=== PATIENT | female | born 1985 | race Caucasian/White ===

== ENCOUNTER → 2016-09-08 11:26 | Observation (INO) ==
[2016-09-08 05:04] LABS: Bilirubin,Urine Negative (Negative); Blood,Urine Negative (Negative); Clarity,Urine Cloudy (Clear); Color,Urine Yellow (Yellow); Glucose,Urine (UA) Normal (Normal); Ketones,Urine Trace mg/dL (Negative); Leukocyte Esterase,Urine Large (Negative); Nitrite,Urine Negative (Negative); Protein,Urine Negative (Neg-Trace); Specific Gravity,Urine 1.012 (1.010-1.025); Urobilinogen,Urine Normal (Normal)
[2016-09-08 05:07] LABS: Bacteria,Urine Moderate per hpf (None-Few); Hyaline Casts,Urine None Seen per lpf (None-Few); RBC,Urine 0-3 per hpf (0-3); Squamous Epithelial Cell,Urine Many per lpf (None-Few)
--- NOTE | 2016-09-08 06:43 | OB/GYN Progress Note ---
Date of Encounter: 09/08/16 Time of Encounter: 06:30 - Assessment and Plan (1) 34 weeks gestation of Current Visit: Yes Status: Acute (2) Uterine contractions Current Visit: Yes Status: Acute UA done, + ketone, possible contaminated. Will send for culture. Pt states did not drink much yesterday. Will give 1L bolus. Follow up cervical exam with unchanged cervix. If contractions continue to decrease will discharge to home Shift report gien to oncoming CNM Subjective - Subjective Interval history: 34+0 complaining of contractions starting last evening becoming more consistent every 3-10 minutes prior to arrival now every 1-4 minutes since arrival. Patient states contractions are strong and becoming increasingly more painful. Patient reports good movement, denies vaginal bleeding or leaking of fluid, blurred vision, visual changes, or epigastric pain. Patient is having increased edema, normotensive, negative protein in urine, patient states she has a history of edema and prior pregnancies. 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 Antepartum ROS: new complaints, movement normal, contractions, no loss of fluid, no vaginal bleeding Objective - Vital Signs Vital Signs: Intake and Output 09/07/16 09/07/16 09/08/16 15:59 23:59 07:59 Other: Weight 116.5 kg Patient Weight 09/08/16 23:59 Weight 116.5 kg - Exam FHR: category 1 Auscultation: bilateral: normal Abdomen: Present: normal appearance, soft, gravid Uterus: Present: normal Cervical dilation: 1/thick/high per RN - Labs Labs: Abnormal lab results Urine Clarity Cloudy (Clear) A 09/08/16 04:55 Urine Ketones Trace mg/dL (Negative) H 09/08/16 04:55 Ur Leukocyte Esterase Large (Negative) H 09/08/16 04:55 Urine Microscopic WBC 5-15 per hpf (0-3) H 09/08/16 04:55 Ur Squamous Epith Cells Many per lpf (None-Few) H 09/08/16 04:55 Urine Bacteria Moderate per hpf (None-Few) H 09/08/16 04:55 Ur Culture Indicated? YES (NO) A 09/08/16 04:55
--- NOTE | 2016-09-08 11:08 | Discharge Summary ---
Date of Encounter: 09/08/16 Time of Encounter: 11:08 - Discharge Diagnosis (1) 34 weeks gestation of Priority: Secondary Status: Acute Comments: No cervical change (2) Uterine contractions Priority: Primary Status: Acute Comments: Have ceased since SQ terbutaline Follow up in office with routine care labor precautions given POC per consult with Dr Plascencia - Discharge Medications Home Medications: Aspirin [Lo-Dose Aspirin EC] 1 tab PO DAILY 09/08/16 [History] FLUoxetine HCl [Prozac] 20 mg PO DAILY 09/08/16 [History] Loratadine [Claritin] 1 tab PO DAILY 09/08/16 [History] [id number]/Iron Fumarate/FA/Dss [ 19 Tablet] 1 tab PO DAILY 09/08/16 [ History] Allergies/Adverse Reactions: Allergies metoclopramide [From Reglan] Allergy (Severe, Verified 09/08/16 04:35) Anaphylaxis morphine Allergy (Verified 09/08/16 04:35) Rash Data Procedures and tests throughout hospitalization: Laboratory Tests 09/08/16 04:55 Urine Color Yellow Urine Clarity Cloudy A Urine pH 7.0 Ur Specific Calvin 1.012 Urine Protein Negative Urine Glucose (UA) Normal Urine Ketones Trace H Urine Blood Negative Urine Nitrite Negative Urine Bilirubin Negative Urine Urobilinogen Normal Ur Leukocyte Esterase Large H Urine Microscopic RBC 0-3 Urine Microscopic WBC 5-15 H Ur Squamous Epith Cells Many H Urine Bacteria Moderate H Hyaline Casts None Seen Ur Culture Indicated? YES A Labs on day of discharge: Labs from last 24 hours 09/08/16 04:55 Urine Color Yellow Urine Clarity Cloudy A Urine pH 7.0 Ur Specific Calvin 1.012 Urine Protein Negative Urine Glucose (UA) Normal Urine Ketones Trace H Urine Blood Negative Urine Nitrite Negative Urine Bilirubin Negative Urine Urobilinogen Normal Ur Leukocyte Esterase Large H Urine Microscopic RBC 0-3 Urine Microscopic WBC 5-15 H Ur Squamous Epith Cells Many H Urine Bacteria Moderate H Hyaline Casts None Seen Ur Culture Indicated? YES A Date of admission: 09/08/16 04:14 Primary care physician: Jemma Rees CNP Discharging clinician: Veena Evans Anticipated date of discharge: 09/08/16 - Patient Status Disposition: Home, Self-Care Condition: Good Functional capacity at discharge: independent ambulation Overall status at discharge: patient is back to baseline - Discharge Instructions Follow Up With: Jemma Rees CNP [Primary Care Provider] - Bhaskar Hill MD [Partnered Physician] - - Diet and Activity Activity: increase activity as tolerated Diet: regular diet Hospital Course RN QUALITY Time Attestation: Total time spent providing and/or coordinating discharge services: Time Spent: Less than 30 minutes Exam - Constitutional General appearance IM: cooperative, A&O X 3, pleasant - Respiratory Respiratory exam: Present: CTAB - Cardiovascular Cardiovascular exam IM: Present: RRR, +S1, +S2 - GI/Abdominal GI/Abdominal exam IM: normal bowel sounds, soft - Rectal Rectal exam: deferred - Additional comments: Gravid, appropriate for gestational age FHTs 120's with moderate variability, 15x15 accels category I TOCO Contractions irregular since receiving terbutaline SQ - Extremities Exam Extremities exam IM: Present: normal capillary refill, normal inspection, radial pulses palpable and symetrical - Neurological Exam Neurological exam: alert, oriented X3
[~2016-09-08 11:26] MED LIST: Ringers Solution, Lactated 1,000 ML IVC SCH; Ringers Solution, Lactated 1,000 ML ONE; Terbutaline 1 MG/ML VIAL SQ ONE
== END | disposition home or self-care (01) ==
LOC: 1NENULAB
PROVIDERS: ADMIT Advanced Practice Midwife; ATTEND Advanced Practice Midwife

== ENCOUNTER 2016-10-05 20:41 | Observation (INO) ==
[2016-10-05 21:16] VITALS: BP 130/79
--- NOTE | 2016-10-05 21:36 | OB/GYN Progress Note ---
Date of Encounter: 10/05/16 Time of Encounter: 21:34 - Assessment and Plan (1) 37 weeks gestation of Current Visit: Yes Status: Acute (2) Uterine contractions Current Visit: No Status: Acute Pt reports contractions have decreased in frequency and intensity since arrival to triage. SVE /-1. She does have a history of fast labors. Will allow pt to ambulate and repeat exam in 1-2 hours. Anticipate discharge home if no cervical change noted. Subjective - Subjective Principal diagnosis: contractions, back pain Interval history: 31 year-old presenting at 37w6d with c/o contractions every 4-6 minutes and sharp lower back pain since 1600 today. She denies any urinary sx, leaking fluid, vaginal bleeding or other complaints. Good FM. Antepartum ROS: movement normal, contractions, no loss of fluid, no vaginal bleeding Objective - Vital Signs Vital Signs: Vital Signs Temp Pulse Resp BP 10/05/16 21:07 97.4 F L 90 16 130/79 Intake and Output 10/05/16 10/05/16 10/05/16 07:59 15:59 23:59 Other: Weight 119 kg Patient Weight 10/05/16 23:59 Weight 119 kg - Exam FHR: category 1 FHR comments: NST reactive Abdomen: Present: soft, gravid. Absent: tenderness Uterus: Absent: tenderness Cervical dilation: 3 Cervix effacement: 70 station: -1
--- NOTE | 2016-10-05 23:38 | Anesthesia Evaluation PreOp ---
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 Significant HX Other Medical History: Denies Any Significant HX Anesthesia History: No Prior Anesthetic Complications, Past Anesthesia (knee arthoscopy, vaginal del - 2 epidural one worked,) : Yes (38 wk) Alcohol Use: none Drug use: none Medications and Allergies Aspirin [Lo-Dose Aspirin EC] 1 tab PO DAILY 09/08/16 [History] FLUoxetine HCl [Prozac] 20 mg PO DAILY 09/08/16 [History] Loratadine [Claritin] 1 tab PO DAILY 09/08/16 [History] [id number]/Iron Fumarate/FA/Dss [ 19 Tablet] 1 tab PO DAILY 09/08/16 [ History] Allergies metoclopramide [From Reglan] Allergy (Severe, Verified 09/08/16 04:35) Anaphylaxis morphine Allergy (Verified 09/08/16 04:35) Rash Anesthesia Exam - HEENT Pupil (Motor): Pupils equal Mallampati: II Teeth: Normal Oral Opening: Greater than 3 - ADMINISTRATIVE SERVICES SPECIALIST LOC: Oriented ADMINISTRATIVE SERVICES SPECIALIST Motor: Normal RUE, Normal LUE, Normal RLE, Normal LLE, Normal Face ADMINISTRATIVE SERVICES SPECIALIST Sensory: Normal: RUE, LUE, RLE, LLE, Face - Cardiac Rhythm: Regular Murmur: None - Pulmonary Breath Sounds: bilateral Clear Respiratory Effort: Symmetrical Anesthesia Assess/Plan ASA Score: 2 Modified Sriram Scale for Level of Consciousness: Cooperative, oriented, and tranquil Anesthetic Plan: General, Regional Monitoring Plan: Standard Monitors
== END 2016-10-06 07:13 | disposition home or self-care (01) ==
LOC: 1NENULAB
PROVIDERS: ADMIT Obstetrics & Gynecology; ATTEND Obstetrics & Gynecology

== ENCOUNTER 2016-10-13 08:00 | Inpatient (IN) ==
[2016-10-13] MEDS ORDERED: Famotidine 20 MG/2 ML VIAL IVP PRN (09:03)
[2016-10-13] MEDS ORDERED: Naloxone 0.4 MG/ML INJ IVP PRN (09:03)
[2016-10-13] MEDS ORDERED: Ringers Solution, Lactated 1,000 ML IVC SCH (09:15)
[2016-10-13 09:30] LABS: Basophils % 0.3 %; Eosinophils # 0.1 K/mcL (0.0-0.6); Eosinophils % 0.8 %; Hemoglobin 11.9 g/dL (11.5-15.4); Immature Granulocytes % 0.8 % (0-4); Lymphocytes # 2.2 K/mcL (0.6-4.6); Lymphocytes % 18.9 %; Mean Corpuscular Hemoglobin 30.6 pg (28.0-33.3); Mean Platelet Volume 11.2 fL (9.4-12.4); Monocytes # 0.8 K/mcL (0.0-1.3); Monocytes % 6.8 %; Neutrophils # 8.6 K/mcL (1.6-8.9); Platelet Count 215 K/mcL (140-400); Red Blood Count 3.89 M/mcL (3.82-4.97); Red Cell Distribution Width 14.5 % (11.5-14.5); Segmented Neutrophils % 72.4 %
[2016-10-13] MEDS ORDERED: Bupivacaine-MPF 0.25% 10 ML VIAL EP ONE (09:42)
[2016-10-13] MEDS ORDERED: *HR* FentaNYL (PF) 100 MCG/2 ML VIAL EP ONE (09:42)
--- NOTE | 2016-10-13 09:43 | OB/GYN History & Physical ---
Date of Encounter: 10/13/16 Time of Encounter: 09:38 Assessment and Plan (1) 39 weeks gestation of Current visit: Yes Status: Acute Admitted for IOL History of Present Illness Chief complaint: Patient here for scheduled IOL HPI: Ms. Cardoso is a 31 year old female @ 39w0d presents to labor and delivery for elective IOL with Dr. Hill. Patient reports +FM, denies LOF, VB or contractions. Patient reports she was dilated 3-4 cm in office last time she had an exam. Patient denies any questions or concerns. Blood type: O+, Rubella: immune, Hep B: Nonreactive, GBS: negative. Past Med Surg Social Fam HX - Past Medical History Source: patient Medical history: no medical history Psychiatric history: anxiety, depression - Past Surgical History Surgical History: other - Social History Smoking Status: Never smoker Smokeless Tobacco Status: No Alcohol use: none Drug use: none Occupational status: employed Current living situation: Home - Independent Activity Level: Independent ambulation Recent Out of Country Travel Within the Last 8 Weeks: No Exposure or Possible Exposure to Illness During Travel: No - Family History Father Family Member Ethnicity: Non- Living Status: Still Living Hx Family Cardiac Disorders: No Hx Family Respiratory Disorders: No Hx Family Cancer: No Hx Family GI Disorders: No Hx Family Endocrine Disorder: Yes (diabetic) Hx Family Neurologic Disorders: No Hx Family HEENT Disorders: No Hx Family Autoimmune Disorders: No Hx Family Medical Disorders: Yes (DVT) Obstetrical History - Pregnancies : 6 Para: 2 Term: 2 : 0 Ab's: 3 Livin Medications and Allergies Aspirin [Lo-Dose Aspirin EC] 1 tab PO DAILY 09/08/16 [History] FLUoxetine HCl [Prozac] 20 mg PO DAILY 09/08/16 [History] Loratadine [Claritin] 1 tab PO DAILY 09/08/16 [History] [id number]/Iron Fumarate/FA/Dss [ 19 Tablet] 1 tab PO DAILY 09/08/16 [ History] Allergies metoclopramide [From Reglan] Allergy (Severe, Verified 09/08/16 04:35) Anaphylaxis morphine Allergy (Verified 09/08/16 04:35) Rash Review of System OB - Constitutional Constitutional ROS IM: no chills, no fever(s), no headache(s) - Cardiovascular Cardiovascular: no chest pain, no palpitations, no syncope - Respiratory Respiratory: no cough, no wheezing - Gastrointestinal Gastrointestinal: no abdominal pain, no constipation, no diarrhea, no heartburn , no nausea, no vomiting - Genitourinary Genitourinary: no abnormal vaginal bleeding, no dysuria, no flank pain, no urinary frequency, no urinary incontinence, no urinary urgency, no vaginal discharge, no vaginal odor, no vaginal pruritis Exam - Constitutional Constitutional: well developed, well nourished, no acute distress, obese - HEENT HEENT: Normocephaly, Mucus Membranes Moist - Neck Neck exam: full ROM, supple - Lungs Respiratory exam: CTAB - Cardiovascular Cardiovascular exam: RRR, +S1, +S2 - Abdomen Abdomen: Present: bowel sounds normal, gravid, non tender - Extremities Extremities exam: full ROM, normal capillary refill, normal inspection Deep Tendon Reflex Grade: 2+ Normal (FHR 125 bpm moderate variability +15x15 accels no decels noted. Contraction irregular. Cat. 1 tracing.) Results Result Diagrams: 10/13/16 09:15 Abnormal lab results WBC 11.9 K/mcL (4.3-11.1) H 10/13/16 09:15 Hct 35.0 % (35.3-44.9) L 10/13/16 09:15 All other labs normal. - VTE Reasons for not Prescribing Prophylaxis: Treatment not Indicated - Low risk for VTE
[2016-10-13] MEDS ORDERED: Epidural Premix (fent/bupiv) 110 ML EP SCH (09:45)
[2016-10-13] MEDS ORDERED: Epidural Premix (fent/bupiv) 110 ML EP ONE (09:53)
[2016-10-13] MEDS ORDERED: *HR* FentaNYL (PF) 100 MCG/2 ML VIAL ONE (09:53)
[2016-10-13] MEDS ORDERED: Bupivacaine-MPF 0.25% 10 ML VIAL ONE (09:53)
--- NOTE | 2016-10-13 10:39 | Anesthesia Evaluation PreOp ---
Date of Encounter: 10/13/16 Time of Encounter: 09:44 - Past History Planned Operation: labor epidural Cardiac History: Denies any Significant Hx Pulmonary History: Denies Any Significant HX HIGH SCHOOL COUNSELOR History: Other (anxiety/depression) Other Medical History: Denies Any Significant HX Anesthesia History: No Prior Anesthetic Complications, Past Anesthesia (knee scope) : Yes Alcohol Use: none Drug use: none Medications and Allergies Aspirin [Lo-Dose Aspirin EC] 1 tab PO DAILY 09/08/16 [History] FLUoxetine HCl [Prozac] 20 mg PO DAILY 09/08/16 [History] Loratadine [Claritin] 1 tab PO DAILY 09/08/16 [History] [id number]/Iron Fumarate/FA/Dss [ 19 Tablet] 1 tab PO DAILY 09/08/16 [ History] Allergies metoclopramide [From Reglan] Allergy (Severe, Verified 09/08/16 04:35) Anaphylaxis morphine Allergy (Verified 09/08/16 04:35) Rash - Meds/Allergy Pre-op Review Medications Reviewed: Yes Allergies Reviewed: Yes Beta Blockers on Current Med List: No Anesthesia Results - Labs 10/13/16 09:15 Anesthesia Exam vss Height: 5'1" Weight: 120kg NPO (# of Hours): >8 Pain Scale: 0 Pain Scale Used: Numeric (1 - 10) - HEENT Pupil (Motor): Pupils equal, EOMI Mallampati: II Teeth: Normal Oral Opening: Greater than 3 - HIGH SCHOOL COUNSELOR LOC: Oriented HIGH SCHOOL COUNSELOR Motor: Normal RUE, Normal LUE, Normal RLE, Normal LLE, Normal Face HIGH SCHOOL COUNSELOR Sensory: Normal: RUE, LUE, RLE, LLE, Face - Cardiac Rhythm: Regular - Pulmonary Breath Sounds: bilateral Clear Respiratory Effort: Symmetrical Anesthesia Assess/Plan ASA Score: 2 Modified Sriram Scale for Level of Consciousness: Cooperative, oriented, and tranquil Anesthetic Plan: Regional Monitoring Plan: Standard Monitors
--- NOTE | 2016-10-13 10:44 | Anesthesia Procedures ---
Date of Encounter: 10/13/16 Time of Encounter: 10:00 Procedures: Anesthesia - Epidural/Spinal Patient ID/Chart reviewed: Yes Patient examined: Yes OB Eval: Gestational age: 39 OB Eval: : 6 OB Eval: Hx Para: 2 OB Eval: Contractions: Non-stressed pattern Consent Obtained: Yes Supplemental Oxygen: None/Room Air Site Prep: Aseptic Technique, Sterile prep and drape, Povidone-Iodine 1% Patient position: upright Local Anesthetic: Lidocaine 1% Amount of Local Anesthetic used: 5 Touhy Needle Gauge: 18 Touhy Needle Depth (cm): 6 Catheter Depth at Skin (cm): 18 Test Dose (1.5% Lido + Epi): Volume given (mls): 3 Test Dose Result: Negative Loading Dose: 0.25% Marcaine (mls): 8 Loading Dose: Fentanyl (mcg): 100 Loading Dose Administered: Thru Catheter Infusion Med: 0.125% Bupivacaine w/ 2 mcg/ml Fentanyl Infusion Rate (mls/hr): [address]: Tegaderm, Tape Interspace Used: L3-L4 Loss of Resistance (CYNTHIA): Yes Blood: No CSF: No Paresthesia: No Vitals + FHT's: 3 Vital Signs Time 1005 1010 1015 1020 1025 1030 BP 146/88 147/88 141/86 142/71 126/84 121/68 Pulse 103 109 106 110 98 97 FHTs 140 140 140 140 140 140
--- NOTE | 2016-10-13 10:53 | OB Labor Progress Note ---
Date of Encounter: 10/13/16 Time of Encounter: 10:50 Labor Progress Note - Subjective Subjective: Patient resting comfortably with epidural in place. Discussed POC with patient. Patient denies any questions or concerns. - Cervix Cervix: 6/80/-1 - Heart Tones Heart Tones: 130 bpm moderate variability +15x15 accels no decels noted. CAt. 1 tracing - Hutton Hutton: 4-5 min apart - Interventions Interventions: SVE 6/80/-1, AROM large amount of clear fluid. Patient tolerated well. - Plan Plan: Continue labor management. If no cervical change will augment with Pitocin.
[2016-10-13] MEDS ORDERED: Oxytocin 20 units/ LR 1000 mL 20 UNIT/1,000 ML BAG IVC SCH ×2 (11:00→18:52)
--- NOTE | 2016-10-13 15:55 | OB/GYN Procedure Note ---
Delivery - Delivery Date: 10/13/16 Provider: Bhaskar Hill Intrapartum events: none Delivery induction: AROM, oxytocin Delivery monitor: external uterine, internal FHT Anesthesia: intravenous Estimated Blood Loss: 150 - (s) Infant A Infant Delivery Date: 10/20/16 Delivery Time: 15:31 Presentation: vertex Position: [place] Route of delivery: Gender: Male Viability: Viable Pounds: 8 Ounces: 11 at 1 minute: 7 at 5 mins: 9 Shoulder Dystocia: not encountered Specimens collected: cord blood Placenta: spontaneous Cord: nuchal cord, 3 umbilical vessels - Repair Episiotomy: none Laceration Description: Perineal - 2nd Degree - Complications Delivery complications: none - Disposition Mom disposition: stable in LDR disposition: stable in LDR - Comments Comments: without incident
[2016-10-13] MEDS ORDERED: Measles/Mumps/Rubella Vacc 0.5 ML VIAL SQ PRN (18:52)
[2016-10-13] MEDS ORDERED: Rho Immune Globulin 1,500 UNIT SYRINGE IM PRN (18:52)
[2016-10-13] MEDS ORDERED: Acetaminophen 325 MG TABLET PO PRN (18:52)
[2016-10-13] MEDS: Ibuprofen 600 MG TABLET PO PRN (21:15)
[2016-10-14 04:42] LABS: Basophils % 0.2 %; Eosinophils # 0.1 K/mcL (0.0-0.6); Eosinophils % 0.6 %; Hematocrit 29.8 % (35.3-44.9); Immature Granulocytes % 0.8 % (0-4); Lymphocytes # 3.2 K/mcL (0.6-4.6); Lymphocytes % 24.7 %; Mean Corpuscular HGB Conc 34.2 g/dL (31.6-35.5); Mean Corpuscular Hemoglobin 30.9 pg (28.0-33.3); Mean Corpuscular Volume 90.3 fL (83.0-100.0); Mean Platelet Volume 11.5 fL (9.4-12.4); Monocytes % 7.5 %; Neutrophils # 8.7 K/mcL (1.6-8.9); Platelet Count 173 K/mcL (140-400); Red Cell Distribution Width 14.5 % (11.5-14.5); Segmented Neutrophils % 66.2 %
[2016-10-14 04:48] LABS: Hemoglobin 10.2 g/dL (11.5-15.4)
[2016-10-14] MEDS: Ibuprofen 600 MG TABLET PO PRN (07:46)
[2016-10-14 08:40] VITALS: BP 123/78
[2016-10-14] MEDS ORDERED: Prenatal Vit/FA 1 EACH TABLET PO SCH (09:00)
[2016-10-14] MEDS ORDERED: Aspirin Enteric Coated 81 MG Tablet PO SCH (09:00)
[2016-10-14] MEDS ORDERED: Loratadine 10 MG TABLET PO SCH (09:00)
[2016-10-14] MEDS ORDERED: FLUoxetine HCl Oral Soln 20 MG/5 ML UDC PO SCH (09:00)
--- NOTE | 2016-10-14 10:55 | Discharge Summary ---
Date of Encounter: 10/14/16 Time of Encounter: 10:53 - Discharge Diagnosis (1) Vaginal delivery Priority: Primary Status: Acute Comments: Pt states feels well. Meeting milestones. Desires discharge - Discharge Medications Prescriptions: Ibuprofen [Motrin] 600 mg PO Q6HR PRN #60 tablet PRN Reason: Pain Docusate [Colace] 100 mg PO BID #60 capsule Ferrous Sulfate 325 mg PO DAILY #60 tablet Home Medications: FLUoxetine HCl [Prozac] 20 mg PO DAILY 09/08/16 [History] Loratadine [Claritin] 1 tab PO DAILY 09/08/16 [History] Emz225/Iron Fumarate/FA/Dss [ 19 Tablet] 1 tab PO DAILY 09/08/16 [ History] Acetaminophen [Tylenol] 650 mg PO Q6HR PRN #0 tablet 10/14/16 [Rx] Docusate [Colace] 100 mg PO BID #60 capsule 10/14/16 [Rx] Ferrous Sulfate 325 mg PO DAILY #60 tablet 10/14/16 [Rx] Ibuprofen [Motrin] 600 mg PO Q6HR PRN #60 tablet 10/14/16 [Rx] Allergies/Adverse Reactions: Allergies metoclopramide [From Reglan] Allergy (Severe, Verified 09/08/16 04:35) Anaphylaxis morphine Allergy (Verified 09/08/16 04:35) Rash Data Procedures and tests throughout hospitalization: Laboratory Tests 10/13/16 10/14/16 09:15 03:51 WBC 11.9 H 13.1 H RBC 3.89 3.30 L Hgb 11.9 10.2 L D Hct 35.0 L 29.8 L MCV 90.0 90.3 MCH 30.6 30.9 MCHC 34.0 34.2 RDW 14.5 14.5 Plt Count 215 173 MPV 11.2 11.5 Immature Gran % 0.8 0.8 Seg Neutrophils % 72.4 66.2 Lymphocytes % 18.9 24.7 Monocytes % 6.8 7.5 Eosinophils % 0.8 0.6 Basophils % 0.3 0.2 Neutrophils # 8.6 8.7 Lymphocytes # 2.2 3.2 Monocytes # 0.8 1.0 Eosinophils # 0.1 0.1 Basophils # 0.0 0.0 Labs on day of discharge: Labs from last 24 hours 10/14/16 03:51 WBC 13.1 H RBC 3.30 L Hgb 10.2 L D Hct 29.8 L MCV 90.3 MCH 30.9 MCHC 34.2 RDW 14.5 Plt Count 173 MPV 11.5 Immature Gran % 0.8 Seg Neutrophils % 66.2 Lymphocytes % 24.7 Monocytes % 7.5 Eosinophils % 0.6 Basophils % 0.2 Neutrophils # 8.7 Lymphocytes # 3.2 Monocytes # 1.0 Eosinophils # 0.1 Basophils # 0.0 Date of admission: 10/13/16 08:33 Primary care physician: Jemma Rees CNP Consults: 10/13/16 18:52 Consult to Journeyman Glazier [CONS] Routine Comment: Vaginal delivery, consult needed Discharging clinician: Paty Sarah Anticipated date of discharge: 10/14/16 - Patient Status Disposition: Home, Self-Care Condition: Good Functional capacity at discharge: independent ambulation Overall status at discharge: patient is back to baseline - Discharge Instructions Follow Up With: Jemma Rees CNP [Primary Care Provider] - Bhaskar Hill MD [Partnered Physician] - - Diet and Activity Activity: resume usual activities as tolerated Diet: regular diet Hospital Course Reason for admission: IUP - Delivery: Episiotomy: none Laceration: 2nd degree Other procedures: none complications: none Discharge diagnosis: IUP at term delivered [place] baby: male Hospital course: Delivery - Delivery Date: 10/13/16 Provider: Bhaskar Hill Intrapartum events: none Delivery induction: AROM, oxytocin Delivery monitor: external uterine, internal FHT Anesthesia: intravenous Estimated Blood Loss: 150 - (s) A Delivery Date: 10/20/16 Infant Delivery Time: 15:31 Presentation: vertex Position: [place] Route of delivery: Gender: Male Viability: Viable Pounds: 8 Ounces: 11 at 1 minute: 7 at 5 mins: 9 Shoulder Dystocia: not encountered Specimens collected: cord blood Placenta: spontaneous Cord: nuchal cord, 3 umbilical vessels - Repair Episiotomy: none Laceration Description: Perineal - 2nd Degree - Complications Delivery complications: none - Disposition Mom disposition: stable in and appropriate for discharge Time Attestation: Total time spent providing and/or coordinating discharge services: Exam - Constitutional Vitals: Temp Pulse Resp BP Pulse Ox 97.4 F L 96 16 123/78 99 10/14/16 08:39 10/14/16 08:39 10/14/16 08:39 10/14/16 08:39 10/14/16 03:51 General appearance IM: A&O X 3 - Respiratory Respiratory exam: Present: CTAB - Cardiovascular Cardiovascular exam IM: Present: RRR - GI/Abdominal GI/Abdominal exam IM: normal bowel sounds, soft - Uterine Tone: Firm Uterus Position: At Umbilicus - Extremities Exam Extremities exam IM: Present: normal capillary refill, normal inspection, pedal edema - Neurological Exam Neurological exam: normal gait, oriented X3 - Psychiatric Additional comments: reports good mood. history of depression. aware of symptoms.
== END 2016-10-14 19:15 | disposition home or self-care (01) | DRG 775 ==
LOC: 1NENULAB 08:33 → 1NENUOBS 18:17
PROVIDERS: ADMIT Obstetrics & Gynecology; ATTEND Obstetrics & Gynecology